=== PATIENT | female | born 1980 | race African-American/Black ===

== ENCOUNTER 2020-07-04 16:07 | Inpatient (IN) ==
[2020-07-04 16:49] LABS: Basophils % 0.3 % (0.0-0.8); Hematocrit 32.2 VOL% (35.7-47.0); Hemoglobin 10.5 GM/DL (12.0-16.0); Immature Granulocytes % 0.6 %; Immature Granulocytes Absolute 0.04 #; Lymphocytes # 1.4 10*3/uL (1.4-4.0); Lymphocytes % 19.3 % (21.3-54.2); Mean Corpuscular HGB Conc 32.6 GM/DL (32-36); Mean Corpuscular Volume 77.2 FL (87-102); Mean Platelet Volume 9.4 FL (9.6-12.0); Monocytes % 8.7 % (1.7-12.7); Neutrophils % 71.1 % (38.7-73.9); Platelet Count 367 T/CUMM (130-400); Red Blood Count 4.17 MC/CUMM (3.8-5.5); Red Cell Distribution Width 16.5 % (9.3-17.3)
[2020-07-04 17:02] LABS: Alanine Aminotransferase 80 U/L (13-56); Alkaline Phosphatase 76 U/L (45-117); Aspartate Amino Transferase 58 U/L (0-37); Bilirubin,Total < 0.39 MG/DL (0.2-1.0); Blood Urea Nitrogen 9 MG/DL (7-18); Calcium 8.6 MG/DL (8.5-10.1); Estimated Glom Filtration Rate 116 ML/MIN; Ferritin 27.5 ng/ml (8-252); Glucose 111 MG/DL (74-106); Osmolality,Calculated 269.1 MOS/KG (273-304); Total Protein 7.6 G/DL (6.4-8.3)
[2020-07-04] MEDS: POTASSIUM CHLORIDE 20 MEQ TABLET PO PRN ×2 (18:10→21:38)
[2020-07-04] MEDS ORDERED: DEXTROSE 50% 25 GM/50 ML VIAL IV PRN (18:17)
[2020-07-04] MEDS ORDERED: GLUCAGON 1 MG VIAL IM PRN (18:17)
[2020-07-04] MEDS ORDERED: ONDANSETRON 4 MG/2 ML VIAL IV PRN (18:17)
[2020-07-04] MEDS ORDERED: ACETAMINOPHEN 325 MG TABLET PO PRN (18:17)
[2020-07-04] MEDS ORDERED: ACETAMINOPHEN 500 MG TABLET PO STA (18:19)
[2020-07-04 18:28] LABS: Barbiturates Screen,Urine Negative (Negative); Benzodiazepines Screen,Urine Negative (Negative); Bilirubin,Urine Negative (Negative); Blood, Urine Small mg/dL (Negative); Cannabinoid Screen,Urine Negative (Negative); Glucose,Urine (UA) Negative (Negative); Ketones,Urine Negative (Negative); Mucus,Urine Occasional /LPF (Occasional); Nitrite,Urine Negative (Negative); Opiate Screen,Urine Negative (Negative); Phencyclidine Screen,Urine Negative (Negative); Protein,Urine Negative; RBC,Urine 29 /HPF (0-4); Squamous Epithelial Cell,Urine Occasional /HPF (0-10); Urine Appearance CLEAR (Clear); Urine Color Yellow (Yellow); Urine Specific Gravity 1.013 (1.001-1.035); Urine Urobilinogen < 2.0 EU/DL (0.2-1.0)
[2020-07-04] MEDS ORDERED: NICOTINE 7 MG/24 HR PATCH TRANSDERM PRN (18:39)
[2020-07-04] MEDS ORDERED: MAGNESIUM SULF RIDER 2 GM in PREMIX 1 EACH IV PRN (18:41)
[2020-07-04] MEDS ORDERED: MAGNESIUM SULF RIDER 4 GM in PREMIX 1 EACH IV PRN (18:41)
[2020-07-04] MEDS: amLODIPine 5 MG TABLET PO SCH (21:37)
[2020-07-04] MEDS: ENOXAPARIN 40 MG/0.4 ML SYRINGE SUBCUT SCH (21:37)
[2020-07-04] MEDS: cefTRIAXone 1,000 MG in SYRINGE 1 EACH IV SCH (21:38)
[2020-07-04] MEDS: AZITHROMYCIN INJ 500 MG in SODIUM CHLORIDE 0.9% 250 ML IV SCH (21:52)
[2020-07-05 06:05] LABS: Basophils % 0.2 % (0.0-0.8); Hematocrit 32.8 VOL% (35.7-47.0); Hemoglobin 10.5 GM/DL (12.0-16.0); Immature Granulocytes % 0.7 %; Immature Granulocytes Absolute 0.04 #; Lymphocytes # 1.6 10*3/uL (1.4-4.0); Lymphocytes % 26.2 % (21.3-54.2); Mean Corpuscular Volume 78.1 FL (87-102); Mean Platelet Volume 9.7 FL (9.6-12.0); Monocytes % 12.2 % (1.7-12.7); Neutrophils % 60.7 % (38.7-73.9); Platelet Count 378 T/CUMM (130-400); Red Cell Distribution Width 16.7 % (9.3-17.3)
[2020-07-05 06:20] LABS: Calcium 8.5 MG/DL (8.5-10.1); Osmolality,Calculated 271.7 MOS/KG (273-304)
[2020-07-05 06:22] LABS: Ferritin 31.5 ng/ml (8-252)
[2020-07-05 06:46] LABS: Elliptocytes Few; Hypochromasia 1+; Microcytosis Slight; Platelet Estimate Adequate
[2020-07-05] MEDS: CHOLECALCIFEROL 1,000 UNIT TABLET PO SCH (10:03)
[2020-07-05] MEDS: ASCORBIC ACID 500 MG TABLET PO SCH (10:03)
[2020-07-05] MEDS: ZINC GLUCONATE 50 MG TABLET PO SCH (10:03)
[2020-07-05] MEDS: amLODIPine 5 MG TABLET PO SCH (10:03)
[2020-07-05] MEDS: DEXAMETHASONE 10 MG/1 ML VIAL IV SCH (10:04)
[2020-07-05] MEDS: FAMOTIDINE 20 MG TABLET PO SCH ×2 (10:04→20:51)
[2020-07-05] MEDS: CETIRIZINE 10 MG TABLET PO SCH (13:29)
[2020-07-05] MEDS ORDERED: REMDESIVIR 200 MG in SODIUM CHLORIDE 0.9% 250 ML IV ONE (13:49)
[2020-07-05] MEDS ORDERED: REMDESIVIR 200 MG in SODIUM CHLORIDE 0.9% 210 ML IV ONE (15:00)
[2020-07-05] MEDS: AZITHROMYCIN INJ 500 MG in SODIUM CHLORIDE 0.9% 250 ML IV SCH (20:50)
[2020-07-05] MEDS: cefTRIAXone 1,000 MG in SYRINGE 1 EACH IV SCH (20:51)
[2020-07-05] MEDS: ENOXAPARIN 40 MG/0.4 ML SYRINGE SUBCUT SCH (20:51)
[2020-07-06] MEDS ORDERED: REMDESIVIR 100 MG in SODIUM CHLORIDE 0.9% 250 ML IV ONE (09:00)
[2020-07-06] MEDS: DEXAMETHASONE 10 MG/1 ML VIAL IV SCH (09:46)
[2020-07-06] MEDS: ZINC GLUCONATE 50 MG TABLET PO SCH (09:46)
[2020-07-06] MEDS: amLODIPine 5 MG TABLET PO SCH (09:46)
[2020-07-06] MEDS: ASCORBIC ACID 500 MG TABLET PO SCH (09:46)
[2020-07-06] MEDS: FAMOTIDINE 20 MG TABLET PO SCH ×2 (09:46→21:56)
[2020-07-06] MEDS: CHOLECALCIFEROL 1,000 UNIT TABLET PO SCH (09:46)
[2020-07-06] MEDS: CETIRIZINE 10 MG TABLET PO SCH (09:46)
[2020-07-06] MEDS: REMDESIVIR 100 MG in SODIUM CHLORIDE 0.9% 230 ML IV SCH (09:49)
[2020-07-06] MEDS ORDERED: BENZONATATE 100 MG CAPSULE PO PRN (11:06)
[2020-07-06] MEDS ORDERED: SODIUM CHLORIDE 0.9% 1,000 ML IV PRN (13:48)
[2020-07-06] MEDS: ENOXAPARIN 40 MG/0.4 ML SYRINGE SUBCUT SCH (21:56)
[2020-07-06] MEDS: cefTRIAXone 1,000 MG in SYRINGE 1 EACH IV SCH (21:56)
[2020-07-06] MEDS: AZITHROMYCIN INJ 500 MG in SODIUM CHLORIDE 0.9% 250 ML IV SCH (22:03)
[2020-07-07 05:42] LABS: Hematocrit 30.6 VOL% (35.7-47.0); Hemoglobin 9.7 GM/DL (12.0-16.0); Immature Granulocytes % 0.4 %; Immature Granulocytes Absolute 0.02 #; Lymphocytes # 1.7 10*3/uL (1.4-4.0); Lymphocytes % 35.7 % (21.3-54.2); Mean Corpuscular HGB Conc 31.7 GM/DL (32-36); Mean Corpuscular Volume 78.5 FL (87-102); Mean Platelet Volume 9.7 FL (9.6-12.0); Monocytes % 14.9 % (1.7-12.7); Platelet Count 405 T/CUMM (130-400); Red Cell Distribution Width 16.6 % (9.3-17.3); White Blood Count 4.8 T/CUMM (4-12)
[2020-07-07 06:05] LABS: Albumin 2.9 G/DL (3.4-5.0); Bilirubin,Total 1.7 MG/DL (0.2-1.0); Calcium 8.4 MG/DL (8.5-10.1); Osmolality,Calculated 274.7 MOS/KG (273-304); Total Protein 6.8 G/DL (6.4-8.3)
[2020-07-07 06:12] LABS: Hypochromasia 1+; Lymphocytes 24 % (20-55); Microcytosis 1+; Ovalocytes Slight; Platelet Estimate Adequate; Segmented Neutrophils 63 % (50-85); Total Cells Counted 100
[2020-07-07 06:17] LABS: Calcium 8.4 MG/DL (8.5-10.1); Osmolality,Calculated 272.8 MOS/KG (273-304)
[2020-07-07 06:19] LABS: Ferritin 36.2 ng/ml (8-252)
[2020-07-07] MEDS ORDERED: REMDESIVIR 100 MG in SODIUM CHLORIDE 0.9% 250 ML IV ONE (09:00)
[2020-07-07] MEDS: ASCORBIC ACID 500 MG TABLET PO SCH (09:26)
[2020-07-07] MEDS: ZINC GLUCONATE 50 MG TABLET PO SCH (09:26)
[2020-07-07] MEDS: CETIRIZINE 10 MG TABLET PO SCH (09:26)
[2020-07-07] MEDS: FAMOTIDINE 20 MG TABLET PO SCH (09:26)
[2020-07-07] MEDS: CHOLECALCIFEROL 1,000 UNIT TABLET PO SCH (09:26)
[2020-07-07] MEDS: amLODIPine 5 MG TABLET PO SCH (09:26)
[2020-07-07] MEDS: DEXAMETHASONE 10 MG/1 ML VIAL IV SCH (09:26)
[2020-07-07] MEDS: REMDESIVIR 100 MG in SODIUM CHLORIDE 0.9% 230 ML IV SCH (09:27)
[2020-07-07 11:49] VITALS: BP 153/76
== END 2020-07-07 13:50 | disposition home or self-care (01) | DRG 177 ==
LOC: N.EDINP 16:07 → N.ED 16:07 → SUATTDRO 18:17 → N.2E 18:50
PROVIDERS: ADMIT Family Medicine; ATTEND Internal Medicine